=== PATIENT | female | born 1965 | race Caucasian/White ===

== ENCOUNTER 2023-06-21 07:49 | Outpatient (CLI) | payer MEDICAID, SELFPAY ==
[2023-06-21 08:12] VITALS: PULSE 60; RESP 18; O2SAT 98
[2023-06-21] MEDS: albuterol 2.5 mg/3 mL Neb INHALATION (08:13)
[2023-06-21 08:17] VITALS: PULSE 69
== END 2023-06-21 07:50 | disposition home or self-care (01) ==
PROVIDERS: PCP Electrodiagnostic Medicine; Visit Provider Electrodiagnostic Medicine
DX: J42 Unspecified chronic bronchitis (principal)
CPT/HCPCS: 94060; 94726; 94729; J7613

== ENCOUNTER 2023-10-18 10:54 | Outpatient (CLI) | payer MEDICAID, SELFPAY ==
--- NOTE | 2023-10-18 10:57 | CT_ITS ---
WS: [id number] LDCT LUNG CANCER SCREENING HISTORY: NICOTINE DEPENDENCE, CIGARETTES TECHNIQUE: Axial imaging performed from the apices to 1 cm below the costophrenic angles. Coronal and sagittal reformats are submitted with axial MIP series. All CT scans at [facility] use at least one of these dose optimization techniques: automated exposure control; mA and/or kV adjustment per patient size (includes targeted exams where dose is matched to clinical indication); or iterativ e reconstruction. DLP: 48.71 mGy.cm DIvol: Mean CTDIvol: 0.90 (mGy) COMPARISON: None available. Diagnostic quality: Satisfactory Lungs: Mild pulmonary hyperinflation. There is a very tiny cyst measuring 3 mm at the LEFT apex. No s uspicious masses or consolidation. No endobronchial lesions. Heart: Normal size heart with no pericardial effusion.. Other findings: Normal size aorta. Mild atherosclerosis. Normal pulmonary artery. No adenopathy. Mild enlargement of the thyroid extends substernal. Calcified LEFT breast implant. Small hiatal hernia. N o adrenal mass. IMPRESSION: CT/CT lung screening 54501 LUNG-RADS: 2-Benign Appearance or Behavior FOLLOW UP: 12 Month: Continue annual screening with LDCT OTHER FINDINGS (S MODIFIER): None.
== END 2023-10-18 10:55 | disposition home or self-care (01) ==
LOC: RAD 10:55
PROVIDERS: PCP Electrodiagnostic Medicine; Visit Provider Family Medicine
DX: F17.210 Nicotine dependence, cigarettes, uncomplicated (principal)
CPT/HCPCS: 71271

== ENCOUNTER 2023-10-19 13:44 | Outpatient (CLI) | payer MEDICAID, SELFPAY ==
--- NOTE | 2023-10-19 13:50 | XR_ITS ---
WS: [id number] SCREENING DEXA SCAN VIRTRA SYSTEMS CLINICAL INFORMATION: POST MENOPAUSAL COMPARISON: None. FINDINGS: The L1-L4 bone mineral density measures 1.016 g/cm2. This corresponds to a T score score of -1.4 and Z score of -0.3. Left femoral neck bone mineral density measures 0.782 g/cm2. This corresponds to a T score of -1.8 an d Z score of -1.0. Right femoral neck bone mineral density measures 0.734 g/cm2. This corresponds to a T score -2.2of an d Z score of -1.4. Mean femoral neck bone mineral density measures 0.758 g/cm2. This corresponds to a T score of -2.0 an d Z score of -1.2. IMPRESSION: Osteopenia lumbar spine. Osteopenia femoral necks. Patient's FRAX calculated 10 year probability for major osteoporotic fracture is 36.4% and osteoporot ic hip fracture is 8.1%.
== END 2023-10-19 13:45 | disposition home or self-care (01) ==
LOC: RAD 13:44
PROVIDERS: PCP Electrodiagnostic Medicine; Visit Provider Physician Assistant
DX: Z13.820 Encounter for screening for osteoporosis (principal); Z78.0 Asymptomatic menopausal state
CPT/HCPCS: 77080

== ENCOUNTER 2024-01-19 21:47 | Emergency (ER) | payer MEDICAID, SELFPAY ==
--- NOTE | 2024-01-19 21:48 | ECG_ITS ---
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 Measurements Intervals [place] Rate: 77 P: 56 NE: 148 QRS: 49 QRSD: 81 T: 51 QT: 355 QTc: 404 Interpretive Statements SINUS RHYTHM No previous ECG available for comparison Electronically Signed On 01-20-2024 9:18:30 CDT by Jesus Tilley M.D. [id number] f
--- NOTE | 2024-01-19 21:51 | XRR_ITS ---
PROCEDURE INFORMATION: Exam: XR Chest Exam date and time: 01/19/2024 10:10 PM Age: 58 years old Clinical indication: Chest wall pain; Additional info: Cp TECHNIQUE: Imaging protocol: Radiologic exam of the chest. Views: 1 view. COMPARISON: CT lung screening [id number] 10/18/2023 11:16 AM FINDINGS: Lungs: Unremarkable. No consolidation. Pleural spaces: Unremarkable. No pleural effusion. No pneumothorax. Heart/Mediastinum: Unremarkable. No cardiomegaly. Bones/joints: Unremarkable. XR/XR chest 1V portable [id number] IMPRESSION: No acute findings.
[2024-01-19 21:52] VITALS: BP 122/84; PULSE 86; RESP 18; TEMP 36.6; O2SAT 98; BMI 26.5
[2024-01-19 22:00] VITALS: PULSE 89; RESP 16; O2SAT 99
--- NOTE | 2024-01-19 22:22 | ED_ITS ---
HPI - Chest Pain 2 General: Chief Complaint: Chest Pain Stated Complaint: Chest Pain\SOB Time Seen by Provider: 01/19/24 22:22 History of Present Illness: 58-year-old female presents emerged part with complaints of left-sided chest pain that she states is a sharp intermittent pain. She states that it is reproducible with pushing on her chest. She states that she has had episodes like this intermittently over the previous 2 years. She states she also feels like she has been having difficulty maintaining her blood pressure and states she takes metoprolol. She states that when the sharp pain occurs pain is a 4 out of 10. She denies shortness of breath dizziness lightheaded feeling. She denies nausea or vomiting. Associated symptoms: Deny dyspnea Review of Systems 2 General: Reports: 10 or more systems reviewed and unremarkable except in HPI and below Card: Reports: chest pain Resp: Denies: dyspnea Physical Exam 2 Narrative: EXAM NARRATIVE: General: Alert, no acute distress. Skin: Warm, dry, Intact. Head: Normocephalic, atraumatic. Neck: Supple, trachea midline. Eye: Extraocular movements are intact. PERRLA Ears, nose, mouth and throat: mucosa moist. Cardiovascular: Regular, Normal peripheral perfusion. Respiratory: Lungs are clear to auscultation, respirations are non-labored, breath sounds are equal, Symmetrical chest wall expansion. Gastrointestinal: Soft, Nontender, Non distended, Normal bowel sounds. Musculoskeletal: Normal ROM, no deformity. Neurological: Alert and oriented, No focal neurological deficit observed. Psychiatric: Cooperative, appropriate mood & affect. Thorax: Left anterior chest palpation demonstrates reproducible chest pain that patient states is consistent with her initial presenting chest pain. Course 2 Vital Signs: Vital signs: Vital Signs Temperature 97.8 F 01/19/24 21:52 Pulse Rate 67 01/20/24 02:31 Respiratory Rate 16 01/20/24 02:31 Blood Pressure 134/71 01/20/24 02:31 Pulse Oximetry 97 01/20/24 02:31 Oxygen Delivery Me thod Room Air 01/19/24 21:52 MDM - Chest Pain Medical Decision Making Physical exam completed and documented, I will obtain serial cardiac enzymes, serial twelve-lead EKGs, chest x-ray, CBC, CMP, urinalysis, B-type natriuretic peptide, PT/PTT/INR, and a chest x-ray. I have reviewed previous and pertinent medical records for assist in obtaining beneficial medical information to improved the care and treatment of the patient. I did provide the patient Toradol and IV steroids while in the emergency department and will discharge her home with prescriptions for corticosteroids. Medical Records I reviewed the patient's medical records. Lab Data I reviewed the patient's lab results. 01/19/24 22:29 01/19/24 22:29 Radiology Impressions Chest X-Ray 01/19/24 21:51 IMPRESSION: No acute findings. Laboratory Results WBC 10.94 10^3/uL (3.29-11.43) 01/19/24 22: RBC 4.68 10^6/uL (3.85-5.65) 01/19/24: Hgb 14.00 g/dL (11.27-16.99) 01/19/24 22: Hct 42.3 % (36-47) 01/19/24 22: MCV 90.4 fl (85-98) 01/19/24: MCH 29.9 pg (27-33) 01/19/24 22: MCHC 33.1 g/dL (30-55) 01/19/24 22: RDW 12.4 % (12.1-15.1) 01/19/24: Plt Count 250 10^3/cmm (157-399) 01/19/24 22: MPV 10.7 fL (7.4-10.4) H 01/19/24 22: Neut % (Auto) 43.0 % 01/19/24: Lymph % (Auto) 46.3 % 01/19/24: [place] % (Auto) 7.6 % 01/19/24: Eos % (Auto) 2.2 % 01/19/24: Baso % (Auto) 0.6 % 01/19/24: Neut # (Auto) 4.71 10^3/uL (1.8-7.7) 01/19/24: Lymph # (Auto) 5.1 10^3/uL (0.8-4.8) H 01/19/24: [place] # (Auto) 0.8 10^3/uL (0.2-0.9) 01/19/24: Eos # (Auto) 0.2 10^3/uL (0.0-0.8) 01/19/24 22: Baso # (Auto) 0.1 10^3/uL (0.0-0.1) 01/19/24 22: Nucleated RBC % (auto) 0 % 01/19/24 22: Nucleated RBCs # 0.0 /100WBC 01/19/24 22: PT 11.60 SECONDS (12.1-14.9) L 01/19/24 22: INR 0.82 (0.8-1.2) 01/19/24 22: Sodium 142 mmol/L (136-145) 01/19/24 22: Potassium 4.0 mmol/L (3.5-5.1) 01/19/24 22: Chloride 106 mmol/L (98-107) 01/19/24 22: Carbon Dioxide 27 mmol/L (22-29) 01/19/24: Anion Gap 13.0 (5-19) 01/19/24 22: BUN 13 mg/dL (6-20) 01/19/24 22: Creatinine 0.7 mg/dL (0.5-0.9) 01/19/24 22: GFR Calculation 85.6 mL/min (90-130) L 01/19/24 22: Glucose 130 mg/dL (65-115) H 01/19/24 22: Calculated Osmolality 296 mOsm/kg (285-295) H 01/19/24: Calcium 8.9 mg/dL (8.5-10.5) 01/19/24 22: Total Bilirubin 0.2 mg/dL (0.15-1.2) 01/19/24 22: AST 20 U/L (0-32) 01/19/24 22: ALT 32 U/L (0-33) 01/19/24 22: Alkaline Phosphatase 96 U/L (35-105) 01/19/24 22: Troponin T Baseline < 6 ng/L (0-10) 01/19/24 22: Troponin T 120 Minute 6.24 ng/L (0-10) 01/19/24 00:01 Delta Troponin T 0.24 ABS# (0-10) 01/19/24 00:01 NT-Pro-B Natriuret Pep < 36 pg/mL (0-125) 01/19/24 22:29 Total Protein 6.6 g/dL (6.6-8.7) 01/19/24 22:29 Albumin 4.3 g/dL (3.5-5.2) 01/19/24 22:29 Globulin 2.3 g/dL (1.3-4.6) 01/19/24 22:29 All radiology interpretation(s) finalized by discharge EKG Data EKG 1: Interpretation: Twelve-lead EKG obtained at 00 12 and reviewed at 00 15 demonstrates sinus bradycardia with underlying sinus arrhythmia. Ventricular rate 54 bpm, GA interval 176, QRS duration 94, QT 4 6 and QTc 391 at present there is no ST elevation or depression to demonstrate acute ischemia or infarction. Discharge Plan Discharge Patient Disposition: Home Clinical Impression: Costochondritis Condition: Stable Prescriptions: New prednisone 20 mg tablet 60 mg PO DAILY 5 Days Qty: 15 0RF Discharge Orders: Discharge ED (Routine); Ordered 01/20/24 Ordered By: Deshaun Castillo Referrals: Les Tang DO [Primary Care Provider] - Discharge Diet: Usual diet Discharge Activity: Resume usual activity Patient Instructions: Opioid Safety, Pain Management Activity Restrictions/Additional Instructions: Activity Restrictions/Additional Instructions: Thank you for choosing [facility] for your healthcare needs today. Please realize that you were seen in the Emergency Department and that we are providing you with an emergency medical screening exam and this may not be a complete and all inclusive of all the testing and or medical work-up that you may need to determine your ailment or severity of your illness. It is very important that you follow-up as instructed with your Primary care provider or Specialist for additional evaluation and to discuss your medical treatment plan. You may return to the Emergency Department should you have concerns or if your condition changes or worsens in any way. Coding Level of Care Code ED Centrifugal Spinner for Nathaly Rahman
[2024-01-19 22:35] LABS: Basophils # 0.1 10^3/uL (0.0-0.1); Basophils % 0.6 %; Eosinophils # 0.2 10^3/uL (0.0-0.8); Eosinophils % 2.2 %; Hematocrit 42.3 % (36-47); Lymphocytes # 5.1 10^3/uL (0.8-4.8); Lymphocytes % 46.3 %; Mean Corpuscular HGB Conc 33.1 g/dL (30-55); Mean Corpuscular Hemoglobin 29.9 pg (27-33); Mean Corpuscular Volume 90.4 fl (85-98); Mean Platelet Volume 10.7 fL (7.4-10.4); Monocytes # 0.8 10^3/uL (0.2-0.9); Monocytes % 7.6 %; Neutrophils # 4.71 10^3/uL (1.8-7.7); Nucleated Red Blood Cells % 0 %; Platelet Count 250 10^3/cmm (157-399); Red Blood Count 4.68 10^6/uL (3.85-5.65); Red Cell Distribution Width 12.4 % (12.1-15.1); White Blood Count 10.94 10^3/uL (3.29-11.43)
[2024-01-19 22:40] VITALS: BP 148/83; PULSE 65; RESP 16; O2SAT 98
[2024-01-19 22:47] LABS: INR 0.82 (0.8-1.2)
[2024-01-19 22:54] LABS: Troponin(5th) Baseline < 6 ng/L (0-10)
[2024-01-19 23:00] VITALS: PULSE 69; RESP 18; O2SAT 98
[2024-01-19 23:02] LABS: Alanine Aminotransferase 32 U/L (0-33); Albumin Level 4.3 g/dL (3.5-5.2); Alkaline Phosphatase 96 U/L (35-105); Aspartate Amino Transferase 20 U/L (0-32); Blood Urea Nitrogen 13 mg/dL (6-20); Calcium 8.9 mg/dL (8.5-10.5); Carbon Dioxide 27 mmol/L (22-29); Chloride 106 mmol/L (98-107); Creatinine Clr Calc Pharmacy 80.1277; Globulin 2.3 g/dL (1.3-4.6); Glomerular Filtration Rate 85.6 mL/min (90-130); Glucose 130 mg/dL (65-115); NT Pro B Type Natriuretic Pept < 36 pg/mL (0-125); Osmolality Calculated 296 mOsm/kg (285-295); Sodium 142 mmol/L (136-145); Total Bilirubin 0.2 mg/dL (0.15-1.2); Total Protein 6.6 g/dL (6.6-8.7)
--- NOTE | 2024-01-19 23:51 | ECG_ITS ---
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 Measurements Intervals [place] Rate: 54 P: 53 [place]: 176 QRS: 33 QRSD: 94 T: 43 QT: 406 QTc: 385 Interpretive Statements SINUS BRADYCARDIA WITH SINUS ARRHYTHMIA LOW QRS VOLTAGE IN PRECORDIAL LEADS [QRS DEFLECTION < 1.0 mV IN CHEST LEADS] Compared to ECG 01/19/2024 21:48:31 Low QRS voltage now present Sinus rhythm no longer present Electronically Signed On 01-20-2024 9:20:06 CDT by Jesus Tilley M.D. [id number]
[2024-01-20 00:06] VITALS: BP 153/87; PULSE 63; RESP 16; O2SAT 98
[2024-01-20 00:30] VITALS: BP 153/89; PULSE 65; RESP 20; O2SAT 98
[2024-01-20 00:39] LABS: Troponin 5 2HR 6.24 ng/L (0-10)
[2024-01-20 00:55] LABS: Troponin 5 2HR Delta 0.24 ABS# (0-10)
[2024-01-20 01:04] VITALS: BP 155/86; PULSE 68; RESP 18; O2SAT 97
[2024-01-20] MEDS: methylPREDNISolone sod succ 125 mg/2 mL INJ 60 MG IVP (02:12)
[2024-01-20] MEDS: ketorolac 30 mg/mL INJ IVP (02:13)
[2024-01-20 02:14] VITALS: BP 154/93; PULSE 63; RESP 19; O2SAT 98
[2024-01-20 02:31] VITALS: BP 134/71; PULSE 67; RESP 16; O2SAT 97
== END 2024-01-20 03:02 | disposition home or self-care (01) ==
PROVIDERS: Emergency Medicine; Emergency Provider Internal Medicine; PCP Electrodiagnostic Medicine
DX: M94.0 Chondrocostal junction syndrome [Tietze] (principal); R00.1 Bradycardia, unspecified; I49.8 Other specified cardiac arrhythmias
CPT/HCPCS: 36415; 71045; 80053; 83880; 84484; 85025; 85610; 93005; 96374; 96375; 99285; J1885; J2919